=== PATIENT | male | born 1965 | race African-American/Black ===

== ENCOUNTER 2019-01-14 15:09 | Emergency (ER) | payer MEDICAID, OTHER ==
[~2019-01-14] VITALS: Ht 185.4 cm; Wt 100.7 kg
[2019-01-14 15:26] VITALS: BP 130/92
--- NOTE | 2019-01-14 15:36 | NUR ---
ED Nurse Note: PT. AAOX4. AMBULATORY. CAME IN TO ER DUE TO PAIN ON THE R ARM SINCE LAST MONDAY. PER PT. HE WAS SLEEPING ADN WOKE UP WITH THE PAIN. DENIES RECENT TRAUMA OR INJURY
--- NOTE | 2019-01-14 16:07 | Emergency Room Report ---
History of Present Illness General Chief Complaint: Upper Extremity Injury Source: Patient Present Illness HPI 53-year-old male patient presents ER complaining of right wrist pain for the past 2 days. Reports "I woke up and it was hurt". Reports that he has pain with movement. Reports left hand dominant. Reports pain in his wrist radiates down to his hand. Denies history of diabetes. Denies acute injury or trauma. Denies other aggravating or relieving factors. States his been taking Motrin without relief of symptoms. Reports history of similar symptoms in the past intermittently. 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 Allergies: Coded Allergies: No Known Allergies (Unverified , 01/14/19) Patient History Past Medical History: see triage record Reviewed Nursing Documentation: PMH: Agreed; PSxH: Agreed Nursing Documentation-PMH Past Medical History: No Stated History Review of Systems All Other Systems: negative except mentioned in HPI Physical Exam Vital Signs Date Time Temp Pulse Resp B/P (MAP) Pulse Ox O2 Delivery O2 Flow Rate FiO2 01/14/19 15:26 98.1 88 19 130/92 96 Room Air Sp02 EP Interpretation: reviewed, normal Head: normocephalic, atraumatic Eyes: bilateral eye normal inspection, bilateral eye PERRL ENT: hearing grossly normal, normal pharynx, no angioedema, normal voice, uvula midline, moist mucus membranes Neck: full range of motion Respiratory: lungs clear, normal breath sounds, no rhonchi, no respiratory distress, no accessory muscle use, no wheezing, speaking full sentences Cardiovascular #1: regular rate, rhythm, no edema Cardiovascular #2: 2+ radial (R), 2+ radial (L) Musculoskeletal: back normal, digits/nails normal, gait/station normal, decreased range of motion - Right wrist secondary to pain, other - NVI, cap refill less than 2 seconds, no deformity, tender - Right wrist Neurologic: alert, oriented x3, responsive, motor strength/tone normal, sensory intact Skin: no rash Medical Decision Making PA Attestation Dr. Skinner is my supervising Physician whom patient management has been discussed with. Diagnostic Impression: Primary Impression: Wrist pain ER Course Pt. presents to the ED c/o wrist pain. Ddx considered but are not limited to fracture, sprain, strain, contusion, dislocation, carpal tunnel, thoracic outlet, arthritis, gout. No erythema, no warmth to touch, no fever, nontoxic appearing, low suspicion for septic joint. Soft compartments, no pulselessness, no pallor, no paresthesias, low suspicion for compartment syndrome at this time. No erythema, no edema, no gouty tophi, suspicion for gout. Patient able to move wrist, low suspicion for ruptured tendon. Vital signs: are WNL, pt. is afebrile Ordered X-ray and pain medication. ER COURSE Provided with pain medication. An X-ray of the left wrist shows no acute fracture or dislocation per the preliminary reading. Advised patient follow-up with physical therapist and orthopedic surgeon to discuss further evaluation and treatment. Splint was applied to the wrist and was checked afterwards by me showing good alignment and support with distal neurovascular functioning intact. Patient instructed on RICE method: rest, ice, compression, elevation. Patient instructed on rest, ice and heat. Patient instructed to be WBAT Contact information for orthopedic urgent care provided, follow-up with urgent care if unable to followup with primary care provider and get referral to air cargo specialist. Followup with primary care provider. Discuss referral to ortho/pain management/ PT as needed. Discuss further imaging with MRI/CT as needed. DISCHARGE: At this time pt. is stable for d/c to home. Patient is resting comfortably, in no acute distress, nontoxic appearing, talking without difficulty. Will provide printed patient care instructions, and any necessary prescriptions. Patient instructed to follow with primary care provider in 3 - 5 days and to request further follow-up as needed. Care plan and follow up instructions have been discussed with the patient prior to discharge. Take medications as directed. Patient questions asked and answered. Patient reports understanding and agreement to treatment plan. ER precautions given, patient instructed to return to ER immediately for any new or worsening of symptoms. - Please note that this Emergency Department Report was dictated using [employer] news anchor technology software, occasionally this can lead to erroneous entry secondary to interpretation by the dictation equipment. Other X-Ray Diagnostic Results Other X-Ray Diagnostic Results : X-Ray ordered: Right wrist # of Views/Limited Vs Complete: 3 View Indication: Pain EP Interpretation: Yes PA Xray: Interpretation reviewed, by supervising MD, and agrees with findings. Interpretation: no dislocation, no soft tissue swelling, no fractures Impression: No acute disease PA Scribe Text Erick Masterson PA-C Last Vital Signs Date Time Temp Pulse Resp B/P (MAP) Pulse Ox O2 Delivery O2 Flow Rate FiO2 01/14/19 15:26 98.1 88 19 130/92 96 Room Air Status: improved Disposition: HOME, SELF-CARE Condition: Stable Scripts Ibuprofen* (MOTRIN*) 800 Mg Tablet 800 MG ORAL Q6H, #30 TAB 0 Refills Prov: Yobani Masterson 01/14/19 Methocarbamol* (ROBAXIN*) 500 Mg Tablet 500 MG PO TID, #21 TAB 0 Refills Prov: Yobani Masterson 01/14/19 Patient Instructions: Carpal Tunnel Syndrome, [id number], Wrist Pain, Easy-to -Read Additional Instructions: Patient instructed to follow up with primary care provider and discuss further referral to orthopedics/physical therapy/pain management as needed. If unable to followup with PCP, followup with orthopedic urgent care in 5-7 days , call to schedule appointment. Patient instructed on RICE method: rest, ice, compression, elevation. Patient instructed to NWB. Take medications as directed. Patient questions asked and answered. ER precautions given, patient instructed to return to ER immediately for any new or worsening of symptoms. [facility] [address] [facility], [id number] [email or web address] Yobani Masterson Jan 14, 2019 16:07
--- NOTE | 2019-01-14 16:10 | NUR ---
ED Nurse Note: patient went down to xray
[2019-01-14] MEDS ORDERED: Ketorolac 30mg Inj IM ONE (16:15)
[2019-01-14] MEDS ORDERED: IBUPROFEN800 MG ORAL (16:40)
[2019-01-14] MEDS ORDERED: ROBAXIN500 MG PO (16:40)
--- NOTE | 2019-01-14 16:47 | NUR ---
ER DISCHARGE NOTE: Patient is cleared to be discharged per ERMD, pt is aox4, on room air, with stable vital signs. pt was given dc and prescription instructions, pt was able to verbalize understanding, pt id band removed without complications. pt is able to ambulate with steady gait. pt took all belongings.
--- NOTE | 2019-01-14 16:55 | Diagnostic Imaging Report ---
Clinical Indication:Right wrist pain Technique: 4 views of the right wrist Comparison: None Findings: No acute fractures. No dislocations. The joint spaces are preserved. Impression: Negative
[2019-01-14 16:57] VITALS: BP 130/92
== END 2019-01-14 16:58 | disposition home or self-care (01) ==
LOC: EMR 15:55
DX: M25.531 Pain in right wrist (principal)
CPT/HCPCS: 73110; 96372; 99283; J1885